=== PATIENT | male | born 1985 | race Two or more races ===

== ENCOUNTER → 2021-04-04 | Outpatient (CLI) | payer OTHER ==
--- NOTE | 2021-04-04 15:18 | KCIC ---
EXAM: Bilateral hands, 3 views; bilateral feet, 3 views. HISTORY: Arthralgia. COMPARISON: None. FINDINGS: 3 views of both hands and feet are obtained. There is no acute fracture, dislocation or sub luxation. The alignment and joint spaces are unremarkable. IMPRESSION: No acute osseous finding. Electronically signed by: Prudence Cortes MD (04/04/2021 3:15 PM) [id number]
== END ==
LOC: KCIC 12:59
PROVIDERS: ATTEND Internal Medicine Rheumatology
DX: M25.542 Pain in joints of left hand (principal); M25.541 Pain in joints of right hand; M25.572 Pain in left ankle and joints of left foot; M25.571 Pain in right ankle and joints of right foot
CPT/HCPCS: 73130-50; 73630-50